=== PATIENT | female | born 1985 | race African-American/Black ===

== ENCOUNTER 2019-10-05 00:16 | Emergency (ER) | payer MEDICAID ==
[~2019-10-05] VITALS: Ht 157.5 cm; Wt 62.9 kg
[2019-10-05 00:17] VITALS: BP 149/95
[2019-10-05] MEDS ORDERED: ACETAMINOPHEN 500 MG TABLET ONE (00:55)
[2019-10-05] MEDS ORDERED: LIDOCAINE 1%-EPI 1:100K, 20ML ONE (00:55)
[2019-10-05] MEDS ORDERED: ACETAMINOPHEN 500 MG TABLET PO ONE (01:00)
[2019-10-05] MEDS ORDERED: LIDOCAINE 1%-EPI 1:100K, 20ML INFIL ONE (01:00)
[2019-10-05] MEDS ORDERED: LIDOCAINE-MPF 1%, 5ML ONE (01:18)
--- NOTE | 2019-10-05 01:30 | NUR ---
PT REPORTS SHE WAS SKATEBOARDING AND FELL OFF AND HIT HEAD INTO CEMENT WALL. LACERATION NOTED TO FOREHEAD. BLEEDING CONTROLLED. DENIES LOC, NAUSEA OR VOMITING. A&OX4.
--- NOTE | 2019-10-05 01:33 | NUR ---
PROVIDER AT BEDSIDE FOR LAC REPAIR.
== END 2019-10-05 01:57 | disposition home or self-care (01) ==
LOC: ED 01:54
DX: S01.81XA Laceration without foreign body of other part of head, initial encounter (principal); F17.210 Nicotine dependence, cigarettes, uncomplicated; V00.131A Fall from skateboard, initial encounter; Y93.51 Activity, roller skating (inline) and skateboarding; Y92.89 Other specified places as the place of occurrence of the external cause; Y99.8 Other external cause status
CPT/HCPCS: 12011; 99282; 99406; J3490

== ENCOUNTER 2019-11-14 18:57 | Emergency (ER) | payer MEDICAID ==
[~2019-11-14] VITALS: Ht 157.5 cm; Wt 70.0 kg
--- NOTE | 2019-11-14 19:10 | NUR ---
PT BIB EMS FOR ABD PAIN, VB, DISCHARGE, AND CRAMPING. PT STATES SHE KNEW SHE WAS BUT DID NOT KNOW HOW FAR ALONG SHE WAS. EMS HAD ALSO BROUGHT IN SOME OF THE FRAGMENTS THAT HAD DC FROM HER VAGINA - APPEARS TO BE A PLACENTA. PT ISNT SURE IF ANY OTHER TISSUE HAS COME OUT. PT STATES SHE HAS BEEN HAVING ABD PAIN FOR 3 DAYS. PT ADMITS TO USING IV METH EVERYDAY. MD IS BEDSIDE FOR ASSESSMENT EMS ALSO STATED THAT SHE CAME FROM [facility] AND THERE WAS 2 MEN WITH HER WHO WERE UPSET THAT SHE WAS GOING TO THE ED ALONE. THEY WANTED TO COME WITH HER. PT STATES THEY ARE NOT FAMILY AND HAS ONLY KNOWN THEM FOR ABOUT A YEAR.
[2019-11-14 19:44] LABS: BASOPHILS # (AUTO) 0.02 x10^3/uL (0-0.1); BASOPHILS % (AUTO) 0 % (0-1); EOSINOPHILS # (AUTO) 0.24 x10^3/uL (0-0.4); EOSINOPHILS % (AUTO) 3 % (1-7); LYMPHOCYTES # (AUTO) 2.06 x10^3/uL (1-3.4); LYMPHOCYTES % (AUTO) 24 % (22-44); MD NO; MEAN CORPUSCULAR HEMOGLOBIN 27.5 pg (27.0-34.8); MEAN CORPUSCULAR HGB CONC 32.4 g/dL (32.4-35.8); MEAN PLATELET VOLUME 8.5 fL (7.4-10.4); MONOCYTES % (AUTO) 6 % (2-9); NEUTROPHILS # (AUTO) 5.92 x10^3/uL (1.8-6.8); NEUTROPHILS % (AUTO) 68 % (42-75); PLATELET COUNT 308 x10^3/uL (130-400); RED BLOOD COUNT 4.39 x10^6/uL (3.82-5.3); RED CELL DISTRIBUTION WIDTH 14.8 % (9.6-15.2)
[2019-11-14 19:54] LABS: ALBUMIN 2.8 g/dL (3.4-5.0); ANION GAP 5 mmol/L (5-15); CALCIUM 8.7 mg/dL (8.5-10.1); CHLORIDE 109 mmol/L (98-107); CREATININE 0.61 mg/dL (0.55-1.02)
[2019-11-14 20:36] VITALS: BP 135/85
--- NOTE | 2019-11-14 20:44 | NUR ---
DIGITAL SALES ASSISTANT, ROBERTO, IN WITH PT.
--- NOTE | 2019-11-14 21:45 | NUR ---
TASK RN. PT STATES SHE LEFT HER CELL PHONE IN THE [facility] DURING TRANSPORT. [facility] CELLED, STATES WILL SPEAK WITH [facility] TO SEE IF CELL PHONE IS FOUND.
[2019-11-14] MEDS ORDERED: ACETAMINOPHEN 325 MG SUPP ONE (21:48)
[2019-11-14] MEDS ORDERED: ACETAMINOPHEN 325 MG TABLET ONE (21:48)
[2019-11-14] MEDS ORDERED: ACETAMINOPHEN 325 MG TABLET PO ONE (22:00)
--- NOTE | 2019-11-15 02:25 | NUR ---
late entry: medics found cell phone and brought it in. Labeled and gave to security for safekeeping.
== END 2019-11-14 22:09 | disposition home or self-care (01) ==
LOC: ED 20:07
DX: O03.4 Incomplete spontaneous abortion without complication (principal)
CPT/HCPCS: 36415; 76856; 80048; 82040; 84702; 85025; 86901; 99284

== ENCOUNTER 2019-11-25 18:08 | Emergency (ER) | payer MEDICAID ==
[~2019-11-25] VITALS: Ht 157.5 cm; Wt 77.0 kg
--- NOTE | 2019-11-25 19:25 | NUR ---
FIXED CAPITAL CLERK: RECEIVED A CALL FROM MOTHER AT [phone] SHE WOULD LIKE A CALL BACK
--- NOTE | 2019-11-25 19:30 | NUR ---
PT SCREAMING IN GURNEY D/T R THIGH PAIN. REPORTS USING METH, BUT STATES NOT TODAY. ENCOURAGED PT TO MOVE/STRETCH LEG OR MASSAGE IT. HEATING PACK PROVIDED. AWAITING ERP.
[2019-11-25] MEDS ORDERED: LORazepam 2 MG/ML, 1ML IVPush ONE (20:00)
[2019-11-25] MEDS ORDERED: MORPHINE SULFATE 4 MG/ML, 1ML IVPush PRN (20:00)
[2019-11-25 20:27] LABS: BASOPHILS # (AUTO) 0.02 x10^3/uL (0-0.1); BASOPHILS % (AUTO) 0 % (0-1); EOSINOPHILS # (AUTO) 0.14 x10^3/uL (0-0.4); EOSINOPHILS % (AUTO) 1 % (1-7); LYMPHOCYTES # (AUTO) 2.26 x10^3/uL (1-3.4); LYMPHOCYTES % (AUTO) 23 % (22-44); MD NO; MEAN CORPUSCULAR HGB CONC 32.6 g/dL (32.4-35.8); MEAN CORPUSCULAR VOLUME 85.8 fL (80-100); MEAN PLATELET VOLUME 8.6 fL (7.4-10.4); MONOCYTES % (AUTO) 9 % (2-9); NEUTROPHILS # (AUTO) 6.58 x10^3/uL (1.8-6.8); NEUTROPHILS % (AUTO) 67 % (42-75); PLATELET COUNT 355 x10^3/uL (130-400); RED BLOOD COUNT 4.12 x10^6/uL (3.82-5.3); RED CELL DISTRIBUTION WIDTH 15.3 % (9.6-15.2)
[2019-11-25 20:33] LABS: ALBUMIN 3.1 g/dL (3.4-5.0); ANION GAP 7 mmol/L (5-15); CALCIUM 8.3 mg/dL (8.5-10.1); CHLORIDE 107 mmol/L (98-107); CREATININE 0.78 mg/dL (0.55-1.02)
[2019-11-25] MEDS ORDERED: MORPHINE SULFATE 4 MG/ML, 1ML ONE (20:41)
[2019-11-25] MEDS ORDERED: LORazepam 2 MG/ML, 1ML ONE (20:42)
--- NOTE | 2019-11-25 20:50 | NUR ---
4 IV ATTEMPTS BY 2 RNs TO ESTABLISH IV. PT STILL SCREAMING D/T PAIN, ASKING, "AM I GOING TO LOSE MY LEG?!" PT MEDICATED PER ORDERS. XR ON HOLD FOR PAIN MEDS. PT MORE CALM, STOPPED YELLING/SCREAMING AFTER PAIN MEDS.
--- NOTE | 2019-11-25 21:30 | NUR ---
PT RESTING IN GURNEY, AWAKE BUT NOT CURRENTLY YELLING. REPOSITIONED SELF ONTO R SIDE.
--- NOTE | 2019-11-25 22:17 | NUR ---
PT AWAKE, STATES HER L LEG IS FEELING BETTER. BLANKET PROVIDED. PT NOT ANSWERING OTHER QUESTIONS AT THIS TIME. VSS
--- NOTE | 2019-11-25 23:12 | NUR ---
WATER PROVIDED TO PT. PT STILL GROGGY/SLEEPY FROM MEDS. PT ATTEMPTED TO GET OUT OF BED BUT SAID, "I STILL CAN'T WALK". THEN PT IMMEDIATELY WENT BACK TO SLEEP. ERP AWARE OF PT CONDITION. REPORTED TO BRONWYN MENA.
--- NOTE | 2019-11-25 23:20 | NUR ---
BEDSIDE REPORT FROM TRACI RN, PT CARE TRANSFERRED AT THIS TIME. PT RESTING ON GURNEY, EYES CLOSED, MUMBLING. ANTONIETA. YANA. DELFINO.
[2019-11-26 00:26] VITALS: BP 120/83
--- NOTE | 2019-11-26 00:27 | NUR ---
PT URINATED IN BED, PROVIDED CLEAN, NEW CLOTHES, NAD, VSS, PT ABLE TO AMBULATE BY SELF WITH A STEADY GAIT. RAJESH SALEH. PT TO BE PROVIDED VOUCHER FOR TAXI PER REQUEST.
--- NOTE | 2019-11-26 00:48 | NUR ---
Pt moving around more and began to be less steady. pt assisted back to YANA elliott WCTM.
--- NOTE | 2019-11-26 01:14 | NUR ---
PT RESTING ON SIDE ON GURNEY, NAD, APPEARS COMFORTABLE, VSS, WCTM. MTF.
== END 2019-11-26 01:45 | disposition home or self-care (01) ==
LOC: ED 11-26 01:43
DX: M25.552 Pain in left hip (principal); F17.200 Nicotine dependence, unspecified, uncomplicated
CPT/HCPCS: 36415; 73502; 80048; 82040; 84702; 85025; 96374; 96375; 99285; J2060; J2270